=== PATIENT | female | born 1945 | race Caucasian/White ===

== ENCOUNTER 2016-10-12 07:58 | Emergency (ER) | payer BC, MEDICARE, OTHER ==
[~2016-10-12] VITALS: Ht 152.4 cm; Wt 81.6 kg
[2016-10-12] MEDS ORDERED: EPINEPHRINE 0.1MG/ML (1:10,000) 10ML SYR ONE ×4 (08:26→13:12)
[2016-10-12] MEDS ORDERED: WATER FOR INJECTION STERILE IV ONE (08:30)
[2016-10-12] MEDS ORDERED: ALTEPLASE 100MG/VIAL IV ONE (08:30)
[2016-10-12] MEDS ORDERED: ALTEPLASE IV ONE (08:30)
[2016-10-12 11:40] VITALS: BP 0/0
[2016-10-12] MEDS ORDERED: CALCIUM CHLORIDE 1GM/10ML SYR IV ONE (13:12)
[2016-10-12] MEDS ORDERED: SODIUM BICARBONATE 7.5% 0.9 MEQ/ML 50ML SYR IV ONE (13:12)
[2016-10-12] MEDS ORDERED: AMIODARONE HCL 50MG/ML 3ML VIAL IV ONE (13:12)
== END 2016-10-12 08:39 | disposition expired ==
LOC: ER 08:24
DX: I46.9 Cardiac arrest, cause unspecified (principal); I10 Essential (primary) hypertension; I26.99 Other pulmonary embolism without acute cor pulmonale; Z86.718 Personal history of other venous thrombosis and embolism
CPT/HCPCS: 31500; 36556; 36680; 99285; J0171; J0282; J2997; J3490